=== PATIENT | female | born 1985 | race Caucasian/White ===

== ENCOUNTER 2016-06-02 08:28 | Day surgery (SDC) | payer MEDICARE, MEDICAID ==
[~2016-06-02 08:28] MED LIST: PROPOFOL INJ 200 MG/20 ML VIAL IV ONE
[2016-06-02 10:08] VITALS: BP 111/78
--- NOTE | 2016-06-02 10:18 | Operative Report ---
Operative Report DATE OF SURGERY: 06/02/16 Operative Report: The risks, benefits and alternatives of the procedure including risks of bleeding, perforation requiring surgery are explained to the patient in detail and informed consent is obtained. Patient is taken back to the endoscopy suite. She is placed in a left lateral decubital position. Timeout procedures called. The propofol medications administered. A rectal examination was done which did not reveal any masses, tears or fissures. An Olympus videoscope was inserted into the patient's rectum. Keeping the lumen in site at all times the scope gradually advanced all the way to the cecum. The cecum was identified by the usual anatomical landmarks including the ileocecal valve as well as the appendiceal office. Photodocumentation was obtained. Prep is good. The scope was then sequentially pulled back out via the rest segments of the colon including the ascending colon, hepatic flexure, transverse colon, splenic flexure, descending colon and finally into the rectosigmoid colon. Retroflexion maneuvers performed. PREOPERATIVE DIAGNOSIS: Diarrhea, change of bowel habits. POSTOPERATIVE DIAGNOSIS: Left sided colitis. Mild terminal ileitis status post biopsy. OPERATION: Colonoscopy with biopsy. SURGEON: JEANETTE HERRING ANESTHESIA: Moderate Sedation TISSUE REMOVED OR ALTERED: Terminal ileum specimens obtained, left colon Specimen obtained. COMPLICATIONS: None. ESTIMATED BLOOD LOSS: none. INTRAOPERATIVE FINDINGS: Patchy left-sided colitis status post biopsy. Mild terminal ileitis. No masses, AVMs diverticulosis noted. PROCEDURE: Patient tolerated the procedure well. No immediate postprocedure complications are noted. Patient is discharged in good condition. Date of discharge 06/02/2016. Discharge diet: Regular. Discharge activity: Regular. Patient is scheduled for 2-3 week follow-up to discuss findings. We'll await on biopsies. Patient is instructed to go to emergency room I will call the office should there be any further problems or questions.
== END 2016-06-02 10:05 | disposition home or self-care (01) ==
LOC: END 08:28
PROVIDERS: ATTEND Internal Medicine Gastroenterology
PROC: 0DBG8ZX Excision of Left Large Intestine, Via Natural or Artificial Opening Endoscopic, Diagnostic (ICD-10-PCS; 2016-06-02)
PROC: 0DBB8ZX Excision of Ileum, Via Natural or Artificial Opening Endoscopic, Diagnostic (ICD-10-PCS; principal; 2016-06-02 10:30)
DX: K52.9 Noninfective gastroenteritis and colitis, unspecified (principal); K62.89 Other specified diseases of anus and rectum; Z88.8 Allergy status to other drugs, medicaments and biological substances
CPT/HCPCS: 45380; 82962; 88305 ×2; J2704; 810

== ENCOUNTER → 2016-07-30 | Outpatient (CLI) | payer MEDICARE, MEDICAID | LOC: OD 11:21 | PROVIDERS: ATTEND Family Medicine | DX: M25.512 Pain in left shoulder (principal); S69.92XA Unspecified injury of left wrist, hand and finger(s), initial encounter; X58.XXXA Exposure to other specified factors, initial encounter; Y93.9 Activity, unspecified; Y92.9 Unspecified place or not applicable ==

== ENCOUNTER 2017-05-02 21:19 | Inpatient (IN) | payer MEDICARE, MEDICAID ==
[2017-05-02] MEDS ORDERED: NORMAL SALINE 1000 ML 1,000 ML IV ONE (22:31)
[2017-05-02] MEDS ORDERED: ONDANSETRON HCL INJ/PF 4 MG/2 ML SDV IV ONE (22:31)
[2017-05-02] MEDS ORDERED: ONDANSETRON HCL INJ/PF 4 MG/2 ML SDV ONE (22:33)
[2017-05-02 22:42] LABS: ABSOLUTE EOSINOPHILS # (AUTO) 0.1 10^3/uL (0.0-0.6); ABSOLUTE LYMPHOCYTES (AUTO) 2.8 10^3/uL (0.5-4.7); ABSOLUTE MONOCYTES (AUTO) 0.9 10^3/uL (0.1-1.4); ABSOLUTE NEUT (AUTO) 9.4 10^3/uL (1.7-8.2); BASOPHILS % (AUTO) 0.3 % (0-2); EOSINOPHILS % (AUTO) 0.6 % (0-6); HEMATOCRIT 41.5 % (36.0-47.0); HEMOGLOBIN 14.3 g/dL (12.0-15.5); HGB HCT DIFFERENCE 1.4; MEAN CORPUSCULAR HEMOGLOBIN 29.2 pg (27.0-33.4); MEAN CORPUSCULAR HGB CONC 34.4 g/dL (32.0-36.0); MEAN CORPUSCULAR VOLUME 85 fl (80-97); MONOCYTES % (AUTO) 6.7 % (3-13); RED BLOOD COUNT 4.89 10^6/uL (3.72-5.28); RED CELL DISTRIBUTION WIDTH 12.8 % (11.5-14.0); SEGMENTED NEUTROPHILS % (AUTO) 71.4 % (42-78); WHITE BLOOD COUNT 13.2 10^3/uL (4.0-10.5)
[2017-05-02 22:53] LABS: BILIRUBIN,URINE NEGATIVE (NEGATIVE); GLUCOSE, URINE NEGATIVE (NEGATIVE); KETONES,URINE TRACE mg/dL (NEGATIVE); LEUKOCYTE ESTERASE,URINE SMALL (NEGATIVE); NITRITE,URINE NEGATIVE (NEGATIVE); PROTEIN,URINE 30 mg/dL (NEGATIVE); URINE SPECIFIC GRAVITY 1.034
[2017-05-02 22:55] LABS: ALANINE AMINOTRANSFERASE 28 U/L (9-52); ALBUMIN 4.4 g/dL (3.5-5.0); ALKALINE PHOSPHATASE 69 U/L (38-126); ANION GAP 16 (5-19); ASPARTATE AMINO TRANSFERASE 46 U/L (14-36); BILIRUBIN,DIRECT 0.3 mg/dL (0.0-0.4); BILIRUBIN,TOTAL 1.1 mg/dL (0.2-1.3); BLOOD UREA NITROGEN 11 mg/dL (7-20); CALCIUM 9.6 mg/dL (8.4-10.2); CARBON DIOXIDE 21 mmol/L (22-30); CHLORIDE 103 mmol/L (98-107); CREATININE RESULT 0.66 mg/dL (0.52-1.25); GLUCOSE 116 mg/dL (75-110); LIPASE 57.1 U/L (23-300); POTASSIUM 4.1 mmol/L (3.6-5.0); SODIUM 140.1 mmol/L (137-145); TOTAL PROTEIN 7.3 g/dL (6.3-8.2)
[2017-05-02 22:59] LABS: APPEARANCE,URINE CLEAR
[2017-05-03] MEDS ORDERED: PROMETHAZINE HCL INJ 25 MG/1 ML VIAL IM ONE
[2017-05-03] MEDS ORDERED: MORPHINE SULFATE 10 MG/ML INJ IV ONE (00:01)
--- NOTE | 2017-05-03 00:03 | ER Document Report ---
ED General - General Chief Complaint: Vomiting Stated Complaint: VOMITING, ABDOMINAL PAIN Time Seen by Provider: 05/02/17 22:25 Notes: Patient is a 33-year-old female presents with complaint of left lower quadrant abdominal pain and vomiting. States symptoms of started last 2012-24 hours. No fevers. She had one episode of diarrhea. No blood in her stool. No blood or emesis. She does have a history of possible colitis. She has a history of IBS. She has had 3 colonoscopies. She said one colonoscopy showed some colitis but the repeats showed that there was not any. She has seen Dr. Terry in the past for this. She denies any history of surgeries on her abdomen. 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 She does take Lexapro. She is also on valacyclovir due to a history of genital herpes. TRAVEL OUTSIDE OF THE [place] IN LAST 30 DAYS: No - Related Data Allergies/Adverse Reactions: aripiprazole [From [email or web address][employer]me] Allergy (Verified 05/02/17 21:20) Hives Past Medical History - Social History Smoking Status: Unknown if Ever Smoked Frequency of alcohol use: None Drug Abuse: None Family History: Reviewed & Not Pertinent Patient has suicidal ideation: No Patient has homicidal ideation: No - Past Medical History Cardiac Medical History: Denies: Hx Coronary Artery Disease, Hx Heart Attack, Hx Hypertension Pulmonary Medical History: Reports: Hx Bronchitis, Hx Pneumonia Denies: Hx Asthma, Hx COPD Neurological Medical History: Reports: Hx Seizures. 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 Denies recent illness. EENT: Denies eye, ear, throat, or mouth pain or symptoms. Denies nasal or sinus congestion. CARDIOVASCULAR: Denies chest pain. RESPIRATORY: Denies cough, cold, or chest congestion. Denies shortness of breath, difficulty breathing, or wheezing. GASTROINTESTINAL: Left lower quadrant abdominal pain. Recurrent vomiting. GENITOURINARY: Denies difficulty urinating, painful urination, burning, frequency, or blood in urine. FEMALE GENITOURINARY: Denies vaginal bleeding, abnormal or irregular periods. MUSCULOSKELETAL: Denies neck or back pain or joint pain or swelling. SKIN: Denies rash or skin lesions. NEUROLOGICAL: Denies altered mental status or loss of consciousness. Denies headache. Denies weakness or paralysis or loss of use of either side. Denies problems with gait or speech. Denies sensory or motor loss. ALL OTHER SYSTEMS REVIEWED AND NEGATIVE. Physical Exam - Vital signs Vitals: Temp Pulse Resp BP Pulse Ox 98.7 F 104 H 18 118/87 H 98 05/02/17 21:31 05/02/17 21:31 05/02/17 21:31 05/02/17 21:31 05/02/17 21:31 - Notes Notes: General Appearance: Well nourished, alert, cooperative, no acute distress, moderate obvious discomfort. Vitals: reviewed, See vital signs table. Head: no swelling or tenderness to the head Eyes: PERRL, EOMI, Conjuctiva clear Mouth: No decreasd moisture Lungs: No wheezing, No rales, No rhonci, No accessory muscle use, good air exchange bilaterally. Heart: Normal rate, Regular rythm, No murmur, no rub Abdomen: Normal BS, soft, No rigidity, her left lower quadrant abdominal tenderness palpation, mild guarding, no rebound, no abdominal masses, no organomegaly Extremities: strength 5/5 in all extremities, good pulses in all extremities, no swelling or tenderness in the extremities, no edema. Skin: warm, dry, appropriate color, no rash Neuro: speech clear, oriented x 3, normal affect, responds appropriately to questions. Course - Re-evaluation Re-evalutation: 05/03/17 00:02 Patient has recurrence dry heaves. She says she still has a lot of left lower quadrant abdominal pain. Mother says she she does have a history of colitis. It is very difficult to determine if it is ulcerative colitis. Mother really does not know. Think she has a slight leukocytosis in the current pain and still vomiting still feels unwell we will obtain CT scan to evaluate her left lower quadrant better. 05/03/17 01:20 CT scan does show moderate grade small bowel obstruction with transition point left lower quadrant which is location of her pain. I went back and did speak with the patient and her mother at length asking them if she does have history of small bowel obstruction I said no but then when explained to them the placement of NG tube her mother says that she did have that placed approximately 4-5 years ago because she had vomiting and abdominal pain at that time. She is mother says she does not remember it being called obstruction but she had the same thing and had out of NG tube placed at that time. He still denies any history of abdominal surgeries. I did speak with Dr. Howard who agrees with NG tube placement and says he will admit the patient. 05/03/17 04:15 Dictation of this chart was performed using voice recognition software; therefore, there may be some unintended grammatical errors. - Vital Signs Vital signs: Temp Pulse Resp BP Pulse Ox 98.7 F 104 H 18 118/87 H 96 05/02/17 21:31 05/02/17 21:31 05/03/17 02:00 05/02/17 21:31 05/03/17 02:00 - Laboratory Result Diagrams: 05/02/17 22:25 05/02/17 22:25 Laboratory results interpreted by me: 05/02/17 05/02/17 05/02/17 22:25 22:25 22:25 WBC 13.2 H Absolute Neutrophils 9.4 H Carbon Dioxide 21 L Glucose 116 H AST 46 H Urine Protein 30 H Urine Ketones TRACE H Urine Urobilinogen 2.0 H Ur Leukocyte Esterase SMALL H Urine Ascorbic Acid 40 H Discharge - Discharge Clinical Impression: Small bowel obstruction Condition: Stable Disposition: ADMITTED OBSERVATION Admitting Provider: Surgicalist Unit Admitted: Surgical Floor
--- NOTE | 2017-05-03 00:46 | RADIOLOGY REPORT (SQ) ---
EXAM DESCRIPTION: CT ABD/PELVIS NO ORAL OR IV CLINICAL HISTORY: 32 years Female, LLQ pain and vomiting COMPARISON: None. TECHNIQUE: This exam was performed according to our departmental dose-optimization program, which includes automated exposure control, adjustment of the mA and/or kV according to patient size and/or use of iterative reconstruction technique. FINDINGS: Moderate fluid distention and air-fluid levels of small bowel in the left paracentral abdomen including in diameter of 4.1 cm. Zone of transition appears in the left paracentral pelvis with moderate fecalization of distal jejunal stool. Small free pelvic fluid. Small colonic diverticulosis. Inferior chest, unenhanced pszii-[id number] structures, IMPRESSION: Moderate grade small bowel obstruction with transition zone in the left paracentral pelvis. Surgical consultation warranted.
[2017-05-03] MEDS ORDERED: MIDAZOLAM 2 MG/2 ML INJ IV ONE (01:16)
[2017-05-03] MEDS ORDERED: PHARMACY COMMUNICATION ORDER MC NR (01:30)
--- NOTE | 2017-05-03 04:47 | RADIOLOGY REPORT (SQ) ---
EXAM DESCRIPTION: KUB/ABDOMEN (SINGLE VIEW) CLINICAL HISTORY: 32 years, Female, Check Placement of NG Tube COMPARISON: None. NUMBER OF VIEWS: One targeted for tube placement. FINDINGS: Adequate appearing distal enteric tube with proximal port and tip over the left upper abdominal quadrant. Moderate dilation of the jejunal bowel loop of the left upper quadrant, 3.6 cm in diameter. IMPRESSION: Enteric tube. 2010 [employer]- All Rights Reserved
[2017-05-03] MEDS ORDERED: NORMAL SALINE 1000 ML 1,000 ML IV PRN (05:49)
[2017-05-03] MEDS ORDERED: DEXTROSE 50%-WATER 25 GM/50 ML DISP.SYRIN IV PRN ×2 (08:03)
[2017-05-03] MEDS ORDERED: DEXTROSE 40% GEL 15 GM TUBE PO PRN ×2 (08:03)
[2017-05-03] MEDS ORDERED: GLUCAGON,HUMAN RECOMB 1 MG INJ SUBCUT PRN (08:03)
[2017-05-03 09:48] LABS: ABSOLUTE EOSINOPHILS # (AUTO) 0.1 10^3/uL (0.0-0.6); ABSOLUTE LYMPHOCYTES (AUTO) 2.5 10^3/uL (0.5-4.7); ABSOLUTE MONOCYTES (AUTO) 0.8 10^3/uL (0.1-1.4); ABSOLUTE NEUT (AUTO) 7.5 10^3/uL (1.7-8.2); BASOPHILS % (AUTO) 0.4 % (0-2); EOSINOPHILS % (AUTO) 1.1 % (0-6); HEMATOCRIT 40.3 % (36.0-47.0); HEMOGLOBIN 13.7 g/dL (12.0-15.5); HGB HCT DIFFERENCE 0.8; LYMPHOCYTES % (AUTO) 22.9 % (13-45); MEAN CORPUSCULAR HEMOGLOBIN 28.9 pg (27.0-33.4); MEAN CORPUSCULAR VOLUME 85 fl (80-97); MONOCYTES % (AUTO) 7.5 % (3-13); RED BLOOD COUNT 4.74 10^6/uL (3.72-5.28); RED CELL DISTRIBUTION WIDTH 12.9 % (11.5-14.0); SEGMENTED NEUTROPHILS % (AUTO) 68.1 % (42-78)
[2017-05-03 10:03] LABS: ANION GAP 12 (5-19); BLOOD UREA NITROGEN 9 mg/dL (7-20); CALCIUM 9.4 mg/dL (8.4-10.2); CARBON DIOXIDE 25 mmol/L (22-30); CHLORIDE 104 mmol/L (98-107); GLUCOSE 105 mg/dL (75-110); POTASSIUM 4.4 mmol/L (3.6-5.0)
[2017-05-03] MEDS: MORPHINE SULFATE 10 MG/ML INJ IV PRN ×2 (13:24→21:46)
[2017-05-03 20:57] LABS: AMORPHOUS SEDIMENT,URINE TRACE /HPF; APPEARANCE,URINE SLIGHTLY-CLOUDY; BILIRUBIN,URINE NEGATIVE (NEGATIVE); GLUCOSE, URINE NEGATIVE (NEGATIVE); KETONES,URINE 20 mg/dL (NEGATIVE); LEUKOCYTE ESTERASE,URINE SMALL (NEGATIVE); NITRITE,URINE NEGATIVE (NEGATIVE); PROTEIN,URINE NEGATIVE (NEGATIVE); URINE SPECIFIC GRAVITY 1.021
--- NOTE | 2017-05-03 21:46 | PDOC H&P ---
History of Present Illness Admission Date/PCP: 05/03/17 21:09 LOCO RECINOS DO Patient complains of: abdominal pains with n/V History of Present Illness: SAAD OATES is a 32 year old female C/O LLQ abdominal painspast 24 hrs prior to being seen in the ED associated N/V. CT scan abdomen in ED showed SBO Pt had no previous abdominal surgery but had been having off and on abdominal juaquin. Had multiple colonoscopies in the past 2 years and mother claims no definite colitis. An NGT was inserted in the ED with a little relief. Past Medical History Cardiac Medical History: Denies: Coronary Artery Disease, Myocardial Infarction, Hypertension Pulmonary Medical History: Reports: Bronchitis, Pneumonia Denies: Asthma, Chronic Obstructive Pulmonary Disease (COPD) Neurological Medical History: Reports: Seizures Endocrine Medical History: Reports: 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 Musculoskeltal Medical History: Denies: Arthritis Psychiatric Medical History: Reports: Depression Traumatic Medical History: Reports: Traumatic Brain Injury Hematology: Denies: Anemia Social History Smoking Status: Unknown if Ever Smoked Drugs: None - Advance Directive Resuscitation Status: Full Code Family History Family History: Reviewed & Not Pertinent Parental Family History Reviewed: Yes - DM Children Family History Reviewed: No Sibling(s) Family History Reviewed.: No Medication/Allergy Home Medications: Dicyclomine HCl 10 mg PO Q8HP PRN 05/03/17 Escitalopram Oxalate [Lexapro 10 mg Tablet] 10 mg PO DAILY 05/03/17 Ibuprofen [Motrin 800 mg Tablet] 800 mg PO Q8HP PRN 05/03/17 Metformin HCl 250 mg PO DAILY 05/03/17 Norgestimate-Ethinyl Estradiol [Trinessa Lo Tablet] 1 tab PO DAILY 05/03/17 Valacyclovir HCl [Valacyclovir] 500 mg PO Q12 05/03/17 Allergies/Adverse Reactions: aripiprazole [From [employer]il[employer]] Allergy (Verified 05/02/17 21:20) Hives Review of Systems Constitutional: PRESENT: other - no fever or chills Eyes: PRESENT: other - no visual or hearing problems Nose, Mouth, and Throat: PRESENT: other - no sore throat Cardiovascular: PRESENT: other - no chest pains Respiratory: PRESENT: other - no cough Gastrointestinal: PRESENT: abdominal pain, nausea, vomiting Musculoskeletal: PRESENT: other - no joint swelling Integumentary: PRESENT: other - no rash Neurological: PRESENT: other - History of seizures Psychiatric: PRESENT: other - no depression Endocrine: PRESENT: other - no polyuria,no polydipsia Physical Exam Vital Signs: Temp Pulse Resp BP Pulse Ox 97.9 F 74 16 107/72 95 05/03/17 17:02 05/03/17 17:02 05/03/17 17:02 05/03/17 17:02 05/03/17 17:02 General appearance: PRESENT: no acute distress Head exam: PRESENT: atraumatic, normocephalic Eye exam: PRESENT: conjunctiva pink Mouth exam: PRESENT: moist, tongue midline Neck exam: PRESENT: full ROM Respiratory exam: PRESENT: clear to auscultation dain Cardiovascular exam: PRESENT: RRR Pulses: PRESENT: normal radial pulses Vascular exam: PRESENT: normal capillary refill GI/Abdominal exam: PRESENT: soft, tenderness - LLQ Rectal exam: PRESENT: deferred Extremities exam: PRESENT: full ROM Musculoskeletal exam: PRESENT: full ROM Neurological exam: PRESENT: alert, oriented to person, oriented to place, oriented to time, oriented to situation Psychiatric exam: PRESENT: unusual affect Skin exam: PRESENT: normal color, warm Results Impressions: Abdomen/Pelvis CT 05/03/17 00:01 IMPRESSION: Moderate grade small bowel obstruction with transition zone in the left paracentral pelvis. Surgical consultation warranted. KUB X-Ray 05/03/17 01:16 IMPRESSION: Enteric tube. 2010 [employer]- All Rights Reserved Assessment & Plan - Time Time Spent: 30 to 50 Minutes - Inpatient Certification Medical Necessity: Need For IV Fluids, Need for Pain Control, Risk of Diagnosis Which Will Require Inpatient Eval/Care/Monitoring - Plan Summary Plan Summary: NGT Pain mx Hydration May need gastrograffin SBFT if not opened up tomorrow Check CBC and BMP
[2017-05-04] MEDS: ONDANSETRON HCL INJ/PF 4 MG/2 ML SDV IV PRN ×2 (08:40→21:42)
[2017-05-04 10:34] LABS: ABSOLUTE EOSINOPHILS # (AUTO) 0.3 10^3/uL (0.0-0.6); ABSOLUTE LYMPHOCYTES (AUTO) 2.1 10^3/uL (0.5-4.7); ABSOLUTE MONOCYTES (AUTO) 0.6 10^3/uL (0.1-1.4); ABSOLUTE NEUT (AUTO) 7.3 10^3/uL (1.7-8.2); BASOPHILS % (AUTO) 0.4 % (0-2); EOSINOPHILS % (AUTO) 2.7 % (0-6); HEMOGLOBIN 12.9 g/dL (12.0-15.5); HGB HCT DIFFERENCE 0.7; LYMPHOCYTES % (AUTO) 20.3 % (13-45); MEAN CORPUSCULAR HEMOGLOBIN 29.1 pg (27.0-33.4); MEAN CORPUSCULAR VOLUME 86 fl (80-97); MONOCYTES % (AUTO) 6.3 % (3-13); RED BLOOD COUNT 4.44 10^6/uL (3.72-5.28); RED CELL DISTRIBUTION WIDTH 12.9 % (11.5-14.0); SEGMENTED NEUTROPHILS % (AUTO) 70.3 % (42-78); WHITE BLOOD COUNT 10.3 10^3/uL (4.0-10.5)
[2017-05-04 10:57] LABS: ANION GAP 15 (5-19); BLOOD UREA NITROGEN 8 mg/dL (7-20); CALCIUM 8.9 mg/dL (8.4-10.2); CARBON DIOXIDE 19 mmol/L (22-30); CHLORIDE 111 mmol/L (98-107); CREATININE RESULT 0.59 mg/dL (0.52-1.25); GLUCOSE 79 mg/dL (75-110); POTASSIUM 3.9 mmol/L (3.6-5.0); SODIUM 144.9 mmol/L (137-145)
[2017-05-04] MEDS: MORPHINE SULFATE 10 MG/ML INJ IV PRN ×3 (11:20→21:42)
--- NOTE | 2017-05-04 11:40 | RADIOLOGY REPORT (SQ) ---
EXAM DESCRIPTION: SMALL BOWEL SERIES COMPLETED DATE/TIME: 05/04/2017 10:11 am REASON FOR STUDY: GASTROGRAFFIN WITH SBO FOLLOW THROUGH R19.15 OTHER ABNORMAL BOWEL SOUNDS R73.03 PREDIABETES COMPARISON: KUB 05/03/2017 CT abdomen pelvis 05/03/2017 Hepatobiliary scan 03/19/2016 Abdominal ultrasound 02/22/2016 FLUOROSCOPY TIME: 1.2 minutes 19 digital images saved to PACS. LIMITATIONS: None. PROCEDURE: Initial technology integration specialist image of abdomen acquired, followed by administration of 240 mL Gastrografi n instilled through the patient's nasogastric tube. Fluoroscopic spot images and KUB images were obt ained, until contrast reached the ascending colon. All images stored on PACS. FINDINGS: Identity Management Developer film demonstrates a nasogastric tube with the tip and side port in the stomach fundu s. A dilated loop of small bowel in the left upper quadrant is seen just to the left of the spine. Otherwise unremarkable bowel gas pattern. Subsequent images demonstrate mild dilatation of left upper quadrant proximal jejunal loops, with mil d mucosal fold thickening and a stack of coins appearance. There is a transition point identified under fluoroscopy between the mildly dilated left upper quadra nt small bowel loops with thickened folds, and more normal appearing mid and distal small bowel. Thi s is at about the level of the L4-5 disc space just to the left of midline, and correlates with a tra nsition point seen on CT exam 05/03/2017. Overall, the degree of distention of the proximal left upp er quadrant small bowel loops on today's study is decreased compared to CT 05/03/2017. Mid and distal small bowel, ascending colon unremarkable. Findings discussed with Dr. Dela Cruz IMPRESSION: Mildly distended left upper quadrant small bowel loops with thickened folds. Transition point to decompressed mid and distal small bowel in the left lower quadrant. Today's study indicate s a low-grade partial obstruction, contrast bypasses the transition point and is seen in ascending co lata and distal small bowel by 45 minutes. COMMENT: Quality ID [id number]: Final reports for procedures using fluoroscopy that document radiation exp osure indices, or exposure time and number of fluorographic images (if radiation exposure indices are not available) TECHNICAL DOCUMENTATION: JOB ID: [id number] [employer]- All Rights Reserved
[2017-05-04] MEDS: DEXTROSE 5%-LACTATED RINGERS 1,000 ML with POTASSIUM CHLORIDE 40 MEQ IV PRN ×4 (14:45→19:34)
--- NOTE | 2017-05-04 16:45 | PDOC PROGRESS REPORT ---
Subjective Progress Note for:: 05/04/17 Reason For Visit: SMALL BOWEL OBSTRUCTION Patient having intermittent abdominal pain, worse when she has massive episodes of diarrhea. Past history significant for for colonoscopies over the past year, performed by multiple providers including Dr. Israel, and Dr. Soto of [facility]. Patient has carried a variety of gastrointestinal diagnoses including irritable bowel syndrome and colitis. Because of the patient's limited cognitive capabilities, the patient's mother provides most of the history. The patient underwent upper GI with small bowel follow-through today with Gastrografin showed no evidence of javier obstruction, however a proximal small bowel loop on the left side of her lateral abdomen is somewhat dilated with a thickened wall. Suggestion of partial obstruction considered. Physical Exam Vital Signs: Temp Pulse Resp BP Pulse Ox 98.2 F 92 17 126/71 H 98 05/04/17 11:00 05/04/17 11:00 05/04/17 11:00 05/04/17 11:00 05/04/17 11:00 Intake & Output 05/03/17 05/04/17 05/05/17 06:59 06:59 06:59 Intake Total 0 Output Total 250 Balance -250 General appearance: PRESENT: mild distress GI/Abdominal exam: PRESENT: other - No peritoneal signs no rigidity Results Laboratory Results: 05/04/17 10:17 05/04/17 10:17 05/04/17 05/04/17 10:17 10:17 WBC 10.3 RBC 4.44 Hgb 12.9 Hct 38.0 MCV 86 MCH 29.1 MCHC 34.0 RDW 12.9 Plt Count 278 Seg Neutrophils % 70.3 Lymphocytes % 20.3 Monocytes % 6.3 Eosinophils % 2.7 Basophils % 0.4 Absolute Neutrophils 7.3 Absolute Lymphocytes 2.1 Absolute Monocytes 0.6 Absolute Eosinophils 0.3 Absolute Basophils 0.0 Sodium 144.9 Potassium 3.9 Chloride 111 H Carbon Dioxide 19 L Anion Gap 15 BUN 8 Creatinine 0.59 Est GFR ( Amer) > 60 Est GFR (Non-Af Amer) > 60 Glucose 79 Calcium 8.9 Impressions: Abdomen/Pelvis CT 05/03/17 00:01 IMPRESSION: Moderate grade small bowel obstruction with transition zone in the left paracentral pelvis. Surgical consultation warranted. KUB X-Ray 05/03/17 01:16 IMPRESSION: Enteric tube. 2011 [employer]- All Rights Reserved Small Bowel X-Ray 05/04/17 00:00 IMPRESSION: Mildly distended left upper quadrant small bowel loops with thickened folds. Transition point to decompressed mid and distal small bowel in the left lower quadrant. Today's study indicates a low-grade partial obstruction, contrast bypasses the transition point and is seen in ascending colon and distal small bowel by 45 minutes. Assessment & Plan - Diagnosis (1) Small bowel obstruction Is this a current diagnosis for this admission?: Yes Plan: Clinically and radiographically the bowel obstruction appears partial; the patient may have an abnormal jejunum loop but that is difficult to ascertain. Recommendations: 1. Continue nasogastric decompression 2. Continue fluid and electrolyte replacement
[2017-05-04] MEDS ORDERED: RINGERS SOLUTION,LACTATED 1,000 ML IV PRN (17:30)
[2017-05-04 19:51] LABS: ANION GAP 10 (5-19); BLOOD UREA NITROGEN 5 mg/dL (7-20); CALCIUM 8.6 mg/dL (8.4-10.2); CARBON DIOXIDE 22 mmol/L (22-30); CHLORIDE 110 mmol/L (98-107); CREATININE RESULT 0.59 mg/dL (0.52-1.25); GLUCOSE 83 mg/dL (75-110); POTASSIUM 4.1 mmol/L (3.6-5.0); SODIUM 141.7 mmol/L (137-145)
[2017-05-04] MEDS ORDERED: FAMOTIDINE INJ/PF 20 MG/2 ML SDV IV ONE (20:00)
[2017-05-04] MEDS ORDERED: FAMOTIDINE 20 MG TABLET PO ONE (20:00)
[2017-05-05] MEDS: ONDANSETRON HCL INJ/PF 4 MG/2 ML SDV IV PRN (05:22)
[2017-05-05] MEDS: MORPHINE SULFATE 10 MG/ML INJ IV PRN ×3 (05:22→21:13)
[2017-05-05 07:09] LABS: ANION GAP 10 (5-19); BLOOD UREA NITROGEN 3 mg/dL (7-20); CALCIUM 8.9 mg/dL (8.4-10.2); CARBON DIOXIDE 22 mmol/L (22-30); CHLORIDE 110 mmol/L (98-107); CREATININE RESULT 0.57 mg/dL (0.52-1.25); GLUCOSE 128 mg/dL (75-110); POTASSIUM 4.5 mmol/L (3.6-5.0); SODIUM 141.9 mmol/L (137-145)
[2017-05-05] MEDS: FAMOTIDINE INJ/PF 20 MG/2 ML SDV IV SCH ×2 (09:20→18:06)
--- NOTE | 2017-05-05 09:32 | PDOC CONSULTATION ---
Consultation Consult Date: 05/05/17 Attending physician:: JEANETTE HERRING Consult reason:: possible partial small bowel obstruction History of Present Illness Admission Date/PCP: 05/03/17 21:09 LOCO RECINOS DO History of Present Illness: I am asked to see this patient by the hospitalist talent acquisition manager today patient has been admitted by the surgical service patient had been seen earlier this year had colonoscopy that was negative patient has seen several GI physicians in this town with multiple scopes in the recent year noted to have seen Dr Delgadillo in [facility], and reported to have [facility] as well admitting CT scan notes a partial small bowel obstruction with contrast able to pass beyond the area her labs are normal without a leukocytosis patient may have an intermittent intussuception noted otherwise would have low probability for Crohn's disease can draw anti sachromyces antibody patient does not appear to be in distress may need ex lap but will let surgeon decide Past Medical History Cardiac Medical History: Denies: Coronary Artery Disease, Myocardial Infarction, Hypertension Pulmonary Medical History: Reports: Bronchitis, Pneumonia Denies: Asthma, Chronic Obstructive Pulmonary Disease (COPD) Neurological Medical History: Reports: Seizures Endocrine Medical History: Reports: 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 Musculoskeltal Medical History: Denies: Arthritis Psychiatric Medical History: Reports: Depression Traumatic Medical History: Reports: Traumatic Brain Injury Hematology: Denies: Anemia Social History Smoking Status: Unknown if Ever Smoked Drugs: None - Advance Directive Resuscitation Status: Full Code Family History Family History: Reviewed & Not Pertinent Parental Family History Reviewed: Yes Children Family History Reviewed: Unknown Sibling(s) Family History Reviewed.: Unknown Medication/Allergy Home Medications: Dicyclomine HCl 10 mg PO Q8HP PRN 05/03/17 Escitalopram Oxalate [Lexapro 10 mg Tablet] 10 mg PO DAILY 05/03/17 Ibuprofen [Motrin 800 mg Tablet] 800 mg PO Q8HP PRN 05/03/17 Metformin HCl 250 mg PO DAILY 05/03/17 Norgestimate-Ethinyl Estradiol [Trinessa Lo Tablet] 1 tab PO DAILY 05/03/17 Valacyclovir HCl [Valacyclovir] 500 mg PO Q12 05/03/17 Allergies/Adverse Reactions: aripiprazole [From Abilify] Allergy (Verified 05/02/17 21:20) Hives Review of Systems Constitutional: ABSENT: fever(s), headache(s), night sweats, weakness Eyes: ABSENT: visual disturbances Ears: ABSENT: hearing changes Nose, Mouth, and Throat: ABSENT: mouth pain, sore throat Cardiovascular: ABSENT: edema, orthropnea Respiratory: ABSENT: dyspnea, hemoptysis Gastrointestinal: PRESENT: abdominal pain. ABSENT: coffee ground emesis, diarrhea, hematemesis Genitourinary: ABSENT: dysuria, hematuria Musculoskeletal: ABSENT: deformity, joint swelling Integumentary: ABSENT: lesions, pruritus Neurological: ABSENT: syncope, tingling, tremor(s), vertigo Endocrine: ABSENT: polydipsia, polyphagia, polyuria Hematologic/Lymphatic: ABSENT: easy bruising Physical Exam Vital Signs: Temp Pulse Resp BP Pulse Ox 98.4 F 75 14 109/70 93 05/05/17 07:04 05/05/17 07:04 05/05/17 07:04 05/05/17 07:04 05/05/17 07:04 Intake & Output 05/04/17 05/05/17 05/06/17 06:59 06:59 06:59 Intake Total 0 480 Output Total 250 2090 Balance -250 -1610 General appearance: PRESENT: no acute distress, well-developed, well-nourished Head exam: PRESENT: atraumatic, normocephalic Eye exam: PRESENT: EOMI, PERRLA. ABSENT: conjunctival injection, nystagmus, periorbital swelling, scleral icterus Mouth exam: PRESENT: moist, neck supple Throat exam: ABSENT: tonsillar exudate, tonsillogmegaly Neck exam: ABSENT: meningismus, tenderness, thyromegaly Respiratory exam: PRESENT: symmetrical, unlabored. ABSENT: tachypnea, wheezes Cardiovascular exam: PRESENT: RRR, +S1, +S2 GI/Abdominal exam: PRESENT: soft. ABSENT: rebound, rigid, tenderness Neurological exam: PRESENT: oriented to time, oriented to situation, CN II-XII grossly intact Skin exam: PRESENT: normal color. ABSENT: mottled, pallor, petechiae, urticaria , vesicles Results Laboratory Results: 05/04/17 10:17 05/05/17 06:16 05/04/17 05/04/17 05/04/17 10:17 10:17 18:55 WBC 10.3 RBC 4.44 Hgb 12.9 Hct 38.0 MCV 86 MCH 29.1 MCHC 34.0 RDW 12.9 Plt Count 278 Seg Neutrophils % 70.3 Lymphocytes % 20.3 Monocytes % 6.3 Eosinophils % 2.7 Basophils % 0.4 Absolute Neutrophils 7.3 Absolute Lymphocytes 2.1 Absolute Monocytes 0.6 Absolute Eosinophils 0.3 Absolute Basophils 0.0 Sodium 144.9 141.7 Potassium 3.9 4.1 Chloride 111 H 110 H Carbon Dioxide 19 L 22 Anion Gap 15 10 BUN 8 5 L Creatinine 0.59 0.59 Est GFR ( Amer) > 60 > 60 Est GFR (Non-Af Amer) > 60 > 60 Glucose 79 83 Calcium 8.9 8.6 05/05/17 06:16 WBC RBC Hgb Hct MCV MCH MCHC RDW Plt Count Seg Neutrophils % Lymphocytes % Monocytes % Eosinophils % Basophils % Absolute Neutrophils Absolute Lymphocytes Absolute Monocytes Absolute Eosinophils Absolute Basophils Sodium 141.9 Potassium 4.5 Chloride 110 H Carbon Dioxide 22 Anion Gap 10 BUN 3 L Creatinine 0.57 Est GFR ( Amer) > 60 Est GFR (Non-Af Amer) > 60 Glucose 128 H Calcium 8.9 Impressions: Abdomen/Pelvis CT 05/03/17 00:01 IMPRESSION: Moderate grade small bowel obstruction with transition zone in the left paracentral pelvis. Surgical consultation warranted. KUB X-Ray 05/03/17 01:16 IMPRESSION: Enteric tube. [facility] [employer] [facility] [employer]- All Rights Reserved Small Bowel X-Ray 05/04/17 00:00 IMPRESSION: Mildly distended left upper quadrant small bowel loops with thickened folds. Transition point to decompressed mid and distal small bowel in the left lower quadrant. Today's study indicates a low-grade partial obstruction, contrast bypasses the transition point and is seen in ascending colon and distal small bowel by 45 minutes. Assessment & Plan - Diagnosis (1) Small bowel obstruction Is this a current diagnosis for this admission?: Yes Plan: seems to be a chronic intermittent problem differential to include possible intussuception, possible Crohn's disease, partial external compression. multiple colonoscopies in the past have been normal lab work is all normal without any leukocytosis may need ex lap, will let surgicalist decide at this point she can follow up with her last GI physician that she has seen, I suspect at [facility] as she has not been back to our practice following her last procedure earlier in the year continue to monitor - Time Time Spent: 50 to 70 Minutes
[2017-05-05] MEDS ORDERED: FAMOTIDINE 20 MG TABLET PO SCH (10:00)
[2017-05-05] MEDS: DEXTROSE 5%-LACTATED RINGERS 1,000 ML with POTASSIUM CHLORIDE 40 MEQ IV PRN ×2 (12:42)
--- NOTE | 2017-05-05 13:24 | PDOC PROGRESS REPORT ---
Subjective Progress Note for:: 05/05/17 Subjective:: Less abdominal pains.+ Flatus Reason For Visit: SMALL BOWEL OBSTRUCTION Physical Exam Vital Signs: Temp Pulse Resp BP Pulse Ox 98.9 F 88 20 112/79 97 05/05/17 11:33 05/05/17 11:33 05/05/17 11:33 05/05/17 11:33 05/05/17 11:33 Intake & Output 05/04/17 05/05/17 05/06/17 06:59 06:59 06:59 Intake Total 0 480 Output Total 250 2090 Balance -250 -1610 Exam: NGT drainage decreasing.Had Gastrogaffin abd xrays yesterday which showed partial SBO. gasrograffin to large bowel in 45 min. Results Laboratory Results: 05/04/17 10:17 05/05/17 06:16 05/04/17 05/05/17 18:55 06:16 Sodium 141.7 141.9 Potassium 4.1 4.5 Chloride 110 H 110 H Carbon Dioxide 22 22 Anion Gap 10 10 BUN 5 L 3 L Creatinine 0.59 0.57 Est GFR ( Amer) > 60 > 60 Est GFR (Non-Af Amer) > 60 > 60 Glucose 83 128 H Calcium 8.6 8.9 Impressions: Abdomen/Pelvis CT 05/03/17 00:01 IMPRESSION: Moderate grade small bowel obstruction with transition zone in the left paracentral pelvis. Surgical consultation warranted. KUB X-Ray 05/03/17 01:16 IMPRESSION: Enteric tube. 2010 [employer] [facility] [employer]- All Rights Reserved Small Bowel X-Ray 05/04/17 00:00 IMPRESSION: Mildly distended left upper quadrant small bowel loops with thickened folds. Transition point to decompressed mid and distal small bowel in the left lower quadrant. Today's study indicates a low-grade partial obstruction, contrast bypasses the transition point and is seen in ascending colon and distal small bowel by 45 minutes. Assessment & Plan - Time Time Spent with patient: 15-24 minutes - Plan Summary Plan Summary: D/C NGT and start clears. Dr Todd who has seen her in the past was consulted
[2017-05-05] MEDS ORDERED: ESCITALOPRAM OXALATE 10 MG TABLET PO ONE ×2 (17:00→21:00)
[2017-05-05] MEDS: VALACYCLOVIR HCL 500 MG TABLET PO SCH (18:07)
[2017-05-06] MEDS: VALACYCLOVIR HCL 500 MG TABLET PO SCH ×2 (05:41→18:22)
--- NOTE | 2017-05-06 09:13 | PDOC PROGRESS REPORT ---
Subjective Progress Note for:: 05/06/17 Subjective:: tolerated po water well but not the gel because it causes LLQ pains. Reason For Visit: SMALL BOWEL OBSTRUCTION Physical Exam Vital Signs: Temp Pulse Resp BP Pulse Ox 97.7 F 62 16 103/68 96 05/06/17 07:00 05/06/17 07:00 05/06/17 07:00 05/06/17 07:00 05/06/17 07:00 Intake & Output 05/05/17 05/06/17 05/07/17 06:59 06:59 06:59 Intake Total 480 1555 Output Total 2090 1200 Balance -1610 355 Weight 71.6 kg Exam: abdomen is soft with mild tenderness LLQ Results Laboratory Results: 05/04/17 10:17 05/05/17 06:16 Impressions: Abdomen/Pelvis CT 05/03/17 00:01 IMPRESSION: Moderate grade small bowel obstruction with transition zone in the left paracentral pelvis. Surgical consultation warranted. KUB X-Ray 05/03/17 01:16 IMPRESSION: Enteric tube. [facility] [employer]- All Rights Reserved Small Bowel X-Ray 05/04/17 00:00 IMPRESSION: Mildly distended left upper quadrant small bowel loops with thickened folds. Transition point to decompressed mid and distal small bowel in the left lower quadrant. Today's study indicates a low-grade partial obstruction, contrast bypasses the transition point and is seen in ascending colon and distal small bowel by 45 minutes. Assessment & Plan - Time Time Spent with patient: 15-24 minutes - Inpatient Certification Medical Necessity: Need For IV Fluids, Risk of Complication if Not Cared For in Hospital - Plan Summary Plan Summary: Seen by Dr Todd yesterday. Feels may have recurrent intususception. Abd is soft, not distended. Had diarrhea this morning and therefore not obviously obstructed. Will continue on clears for now and advance as tolerated. OOB ambulate
[2017-05-06] MEDS ORDERED: NORGESTIMATE ETHINYL ESTRADIOL PO SCH (10:00)
[2017-05-06] MEDS ORDERED: ESCITALOPRAM OXALATE 10 MG TABLET PO SCH ×2 (10:00→21:00)
[2017-05-06] MEDS: FAMOTIDINE INJ/PF 20 MG/2 ML SDV IV SCH ×2 (10:20→18:22)
[2017-05-06] MEDS: ESCITALOPRAM OXALATE 10 MG TABLET PO SCH (21:20)
[2017-05-06] MEDS: MORPHINE SULFATE 10 MG/ML INJ IV PRN (23:34)
[2017-05-07] MEDS: VALACYCLOVIR HCL 500 MG TABLET PO SCH ×2 (05:26→17:44)
[2017-05-07] MEDS: FAMOTIDINE INJ/PF 20 MG/2 ML SDV IV SCH ×2 (10:20→17:44)
[2017-05-07] MEDS ORDERED: DEXTROSE 50%-WATER 25 GM/50 ML DISP.SYRIN IV PRN ×2 (10:44)
[2017-05-07] MEDS ORDERED: DEXTROSE 40% GEL 15 GM TUBE PO PRN ×2 (10:44)
[2017-05-07] MEDS ORDERED: GLUCAGON,HUMAN RECOMB 1 MG INJ SUBCUT PRN (10:44)
[2017-05-07] MEDS ORDERED: DEXTROSE 5%-1/2 NORMAL SALINE 1,000 ML with POTASSIUM CHLORIDE 20 MEQ IV PRN ×2 (10:45)
--- NOTE | 2017-05-07 11:23 | RADIOLOGY REPORT (SQ) ---
EXAM DESCRIPTION: ABDOMEN 2 VIEWS COMPLETED DATE/TIME: 05/07/2017 11:16 am REASON FOR STUDY: Follow-up small bowel obstruction R19.15 OTHER ABNORMAL BOWEL SOUNDS R73.03 PRED IABETES COMPARISON: None. NUMBER OF VIEWS: Two views. TECHNIQUE: Supine and erect/decubitus radiographic images of the abdomen acquired. LIMITATIONS: None. FINDINGS: FREE AIR: None. No abnormal gas collections. LUNG BASES: Clear. BOWEL GAS PATTERN: Nonobstructive pattern. No dilated loops or air fluid levels. CALCIFICATIONS: No suspicious calcifications. SOFT TISSUES: No gross mass or suggestion of organomegaly. HARDWARE: None in the abdomen. BONES: No acute fracture. No worrisome bone lesions. OTHER: No other significant finding. IMPRESSION: NO RADIOGRAPHIC EVIDENCE FOR ACUTE ABDOMINAL DISEASE. TECHNICAL DOCUMENTATION: JOB ID: [id number] [employer]- All Rights Reserved
[2017-05-07] MEDS: POTASSI CL 20 MEQ/D5-1/2NS 1L 1000 ML IV PRN (13:07)
--- NOTE | 2017-05-07 16:09 | PDOC PROGRESS REPORT ---
Subjective Progress Note for:: 05/07/17 Subjective:: Does not have nausea or vomiting however she complains of left mid abdominal pain. She has been passing some gas but not having any bowel movements today. Patient notes several year history of various gastrointestinal complaints with no clear etiology. Reason For Visit: SMALL BOWEL OBSTRUCTION Physical Exam Vital Signs: Temp Pulse Resp BP Pulse Ox 98.2 F 76 16 108/80 98 05/07/17 12:32 05/07/17 12:32 05/07/17 12:32 05/07/17 12:32 05/07/17 12:32 Intake & Output 05/06/17 05/07/17 05/08/17 06:59 06:59 06:59 Intake Total 1555 2030 Output Total 1200 Balance 355 2030 Weight 71.6 kg General appearance: PRESENT: no acute distress, cooperative Respiratory exam: PRESENT: clear to auscultation dain Cardiovascular exam: PRESENT: RRR GI/Abdominal exam: PRESENT: other - Soft, nondistended, mild left mid abdominal tenderness without peritoneal signs. Results Laboratory Results: 05/04/17 10:17 05/05/17 06:16 Impressions: Abdomen/Pelvis CT 05/03/17 00:01 IMPRESSION: Moderate grade small bowel obstruction with transition zone in the left paracentral pelvis. Surgical consultation warranted. KUB X-Ray 05/03/17 01:16 IMPRESSION: Enteric tube. [email or web address] [facility] [employer]- All Rights Reserved Small Bowel X-Ray 05/04/17 00:00 IMPRESSION: Mildly distended left upper quadrant small bowel loops with thickened folds. Transition point to decompressed mid and distal small bowel in the left lower quadrant. Today's study indicates a low-grade partial obstruction, contrast bypasses the transition point and is seen in ascending colon and distal small bowel by 45 minutes. Abdomen X-Ray 05/07/17 00:00 IMPRESSION: NO RADIOGRAPHIC EVIDENCE FOR ACUTE ABDOMINAL DISEASE. Assessment & Plan - Diagnosis (1) Small bowel obstruction Is this a current diagnosis for this admission?: Yes Plan: Her partial small bowel obstruction appears to have resolved as evidenced by no nausea or vomiting, and her normal KUB today. However patient still has persistent left mid abdominal tenderness and pain and this does appear to be the site of transition point that was seen on her Gastrografin small bowel follow series. I have discussed her with radiology. Putting her heads together a barium small bowel follow series may give us better definition of what may be going on in her left mid abdomen. In light of the abnormality seen on the Gastrografin small bowel follow and the chronicity of her abdominal symptoms I feel strongly that a repeat study with barium is indicated in this patient. I will leave her on clear liquids today and will obtain small bowel follow series with barium tomorrow.
[2017-05-07] MEDS: ESCITALOPRAM OXALATE 10 MG TABLET PO SCH (21:04)
[2017-05-07] MEDS: MORPHINE SULFATE 10 MG/ML INJ IV PRN (22:31)
[2017-05-07] MEDS: ONDANSETRON HCL INJ/PF 4 MG/2 ML SDV IV PRN (22:31)
[2017-05-08] MEDS: POTASSI CL 20 MEQ/D5-1/2NS 1L 1000 ML IV PRN ×3 (02:20→23:05)
[2017-05-08] MEDS: VALACYCLOVIR HCL 500 MG TABLET PO SCH ×2 (05:34→17:09)
[2017-05-08] MEDS: FAMOTIDINE INJ/PF 20 MG/2 ML SDV IV SCH ×2 (11:55→17:09)
--- NOTE | 2017-05-08 13:11 | RADIOLOGY REPORT (SQ) ---
EXAM DESCRIPTION: SMALL BOWEL SERIES COMPLETED DATE/TIME: 05/08/2017 9:58 am REASON FOR STUDY: Reevaluate small bowel dilation with barium R19.15 OTHER ABNORMAL BOWEL SOUNDS R7 3.03 PREDIABETES COMPARISON: Gastrografin small bowel follow-through 05/04/2017 Barium Small bowel follow-through 07/09/2009 Abdominal films 05/07/2017, 05/03/2017, CT abdomen pelvis 05/03/2017, FLUOROSCOPY TIME: 45 seconds 14 images saved to PACS. LIMITATIONS: None. PROCEDURE: Initial metrologist image of abdomen acquired, followed by administration of oral contrast. Se rial radiographic images acquired. Fluoroscopic images recorded of the terminal ileum and other lalo cated areas. All images stored on PACS. 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 No left upp er quadrant bowel loop wall thickening as was seen on Gastrografin study 05/04/2017. STOMACH: No significant reflux. Normal distention without abnormality. DUODENUM: Normal mucosal pattern with adequate distention. No displacement or obstruction. JEJUNUM: Normal mucosal pattern. No dilatation, segmentation, strictures or masses. ILEUM: Normal mucosal pattern. No dilatation, segmentation, strictures or masses. TERMINAL ILEUM AND ILEO-CECAL VALVE: Normal mucosal pattern without "cobble-stoning" or stricture. N ormal compression. PROXIMAL COLON: Incompletely imaged. No abnormality. OTHER: No other significant finding. IMPRESSION: The left upper quadrant dilated proximal small bowel loops and small bowel caliber trans ition point seen on prior CT exam and Gastrografin small bowel study in the left mid abdomen is no lo nger identified. No delay in transit of barium through the colon. Distal ileum is normal COMMENT: Quality ID [id number]: Final reports for procedures using fluoroscopy that document radiation exp osure indices, or exposure time and number of fluorographic images (if radiation exposure indices are not available) TECHNICAL DOCUMENTATION: JOB ID: [id number] [employer]- All Rights Reserved
--- NOTE | 2017-05-08 18:06 | PDOC PROGRESS REPORT ---
Subjective Progress Note for:: 05/08/17 Subjective:: still with LLQ pains. + Flatus and BM Reason For Visit: SMALL BOWEL OBSTRUCTION Physical Exam Vital Signs: Temp Pulse Resp BP Pulse Ox 97.9 F 81 12 117/69 99 05/08/17 15:35 05/08/17 15:35 05/08/17 15:35 05/08/17 15:35 05/08/17 15:35 Intake & Output 05/07/17 05/08/17 05/09/17 06:59 06:59 06:59 Intake Total 2030 686 Output Total 900 Balance 2029 -214 Weight 71.6 kg Exam: abdomen soft, mild tenderness LLQ Results Laboratory Results: 05/04/17 10:17 05/05/17 06:16 Impressions: Abdomen/Pelvis CT 05/03/17 00:01 IMPRESSION: Moderate grade small bowel obstruction with transition zone in the left paracentral pelvis. Surgical consultation warranted. KUB X-Ray 05/03/17 01:16 IMPRESSION: Enteric tube. 2010 [email or web address]- All Rights Reserved Abdomen X-Ray 05/07/17 00:00 IMPRESSION: NO RADIOGRAPHIC EVIDENCE FOR ACUTE ABDOMINAL DISEASE. Small Bowel X-Ray 05/08/17 08:00 IMPRESSION: The left upper quadrant dilated proximal small bowel loops and small bowel caliber transition point seen on prior CT exam and Gastrografin small bowel study in the left mid abdomen is no longer identified. No delay in transit of barium through the colon. Distal ileum is normal Assessment & Plan - Time Time Spent with patient: 15-24 minutes - Plan Summary Plan Summary: Plan to gradually increase po intake. Possible discharge tomorrow and follow up with [facility] Dr Soto.
[2017-05-08] MEDS: ESCITALOPRAM OXALATE 10 MG TABLET PO SCH (22:02)
[2017-05-09] MEDS: MORPHINE SULFATE 10 MG/ML INJ IV PRN (06:00)
[2017-05-09] MEDS: VALACYCLOVIR HCL 500 MG TABLET PO SCH (06:00)
[2017-05-09 08:43] VITALS: BP 102/65
== END 2017-05-09 09:00 | disposition home or self-care (01) | DRG 390 ==
LOC: ER 21:19 → EH 05-03 01:35 → 5 05-03 03:00 → OBSVTOIN 05-03 21:09
PROVIDERS: ADMIT Surgery; ATTEND Surgery
DX: K56.609 Unspecified intestinal obstruction, unspecified as to partial versus complete obstruction (principal); K58.9 Irritable bowel syndrome, unspecified; R73.03 Prediabetes; R47.02 Dysphasia; R26.0 Ataxic gait; G40.909 Epilepsy, unspecified, not intractable, without status epilepticus; F32.9 Major depressive disorder, single episode, unspecified; Z87.820 Personal history of traumatic brain injury
CPT/HCPCS: 36415; 74000; 74020; 74176; 74250; 80048; 80053; 81001; 81025; 83690; 85025; 87086; 96361; 96372; 96374; 96375; 99285; J2250; J2270; J2405; J2550; J3480; J7030; J7120; S0028

== ENCOUNTER 2017-06-23 15:57 | Emergency (ER) | payer MEDICARE, MEDICAID ==
[2017-06-23] MEDS ORDERED: ONDANSETRON HCL INJ/PF 4 MG/2 ML SDV IV ONE (18:48)
--- NOTE | 2017-06-23 18:48 | ER Document Report ---
ED Medical Screen (RME) - General Chief Complaint: Nausea/Vomiting/Diarrhea Stated Complaint: VOMITING,DIARRHEA Time Seen by Provider: 06/23/17 18:19 Mode of Arrival: Wheelchair Information source: Patient Notes: Patient is a 32 year old female with a history of IBS, PCOS, and a previous bowel obstruction presents to the emergency department accompanied by mother complaining of abdominal pain onset 2 days ago. Patients associated symptoms include vomiting onset today, diarrhea onset yesterday, a chronic cough and chronic chest pain. Mother is concerned for another possible bowel obstruction. I have greeted and performed a rapid initial assessment of this patient. A comprehensive ED assessment and evaluation of the patient, analysis of test results and completion of the medical decision making process will be conducted by additional ED providers. TRAVEL OUTSIDE OF THE [place] IN LAST 30 DAYS: No - Related Data Allergies/Adverse Reactions: aripiprazole [From Abilify] Allergy (Verified 06/23/17 16:06) Hives Past Medical History - General Information source: Patient - Social History Chew tobacco use (# tins/day): No Frequency of alcohol use: None Drug Abuse: None Pulmonary Medical History: Reports: Hx Bronchitis, Hx Pneumonia Neurological Medical History: Reports: Hx Seizures Endocrine Medical History: Reports: Hx 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 Musculoskeltal Medical History: Reports Hx Musculoskeletal Deformity, Reports Hx Musculoskeletal Trauma Psychiatric Medical History: Reports: Hx Depression Traumatic Medical History: Reports: Hx Traumatic Brain Injury Past Surgical History: Reports: Hx Neurologic Surgery - 2X ventriculectomy - Immunizations Hx Diphtheria, Pertussis, Tetanus Vaccination: Yes History of Influenza Vaccine for 02/2017 - 07/2017 Season: Refused Review of Systems - Review of Systems Constitutional: No symptoms reported EENT: No symptoms reported Cardiovascular: No symptoms reported Respiratory: No symptoms reported Gastrointestinal: See HPI, Abdominal pain Genitourinary: No symptoms reported Female Genitourinary: No symptoms reported Musculoskeletal: No symptoms reported Skin: No symptoms reported Hematologic/Lymphatic: No symptoms reported Neurological/Psychological: No symptoms reported -: Yes All other systems reviewed and negative Physical Exam - Vital signs Vitals: Temp Pulse Resp BP Pulse Ox 98.9 F 115 H 20 109/72 97 06/23/17 16:18 06/23/17 16:18 06/23/17 16:18 06/23/17 16:18 06/23/17 16:18 - Notes Notes: GENERAL: Alert, interacts well. No acute distress. HEAD: Normocephalic, atraumatic. EYES: Pupils equal, round, and reactive to light. Extraocular movements intact. ENT: Oral mucosa moist, tongue midline. NECK: Full range of motion. Supple. Trachea midline. LUNGS: Clear to auscultation bilaterally, no wheezes, rales, or rhonchi. No respiratory distress. HEART: Tachycardia. No murmurs, gallops, or rubs. ABDOMEN: Soft, Diffusely tender to palpation. Non-distended. Decreased bowel sounds EXTREMITIES: Moves all 4 extremities spontaneously. NEUROLOGICAL: Alert and oriented x3. Normal speech. PSYCH: Normal affect, normal mood. SKIN: Warm, dry, normal turgor. No rashes or lesions noted. Course - Vital Signs Vital signs: Temp Pulse Resp BP Pulse Ox 98.9 F 115 H 20 109/72 97 06/23/17 16:18 06/23/17 16:18 06/23/17 16:18 06/23/17 16:18 06/23/17 16:18 Scribe Documentation - Scribe Written by Heather:: Heather Rush, 06/23/2017 18:49 acting as scribe for :: New
[2017-06-23 19:30] LABS: ABSOLUTE EOSINOPHILS # (AUTO) 0.4 10^3/uL (0.0-0.6); ABSOLUTE MONOCYTES (AUTO) 1.1 10^3/uL (0.1-1.4); ABSOLUTE NEUT (AUTO) 14.5 10^3/uL (1.7-8.2); BASOPHILS % (AUTO) 0.1 % (0-2); EOSINOPHILS % (AUTO) 2.6 % (0-6); HEMATOCRIT 42.2 % (36.0-47.0); HEMOGLOBIN 14.4 g/dL (12.0-15.5); LYMPHOCYTES % (AUTO) 5.7 % (13-45); MEAN CORPUSCULAR HEMOGLOBIN 29.1 pg (27.0-33.4); MEAN CORPUSCULAR HGB CONC 34.2 g/dL (32.0-36.0); MEAN CORPUSCULAR VOLUME 85 fl (80-97); MONOCYTES % (AUTO) 6.4 % (3-13); PLATELET COUNT 307 10^3/uL (150-450); RED BLOOD COUNT 4.96 10^6/uL (3.72-5.28); RED CELL DISTRIBUTION WIDTH 12.8 % (11.5-14.0); SEGMENTED NEUTROPHILS % (AUTO) 85.2 % (42-78); TOTAL CELLS COUNTED % (AUTO) 100 %
[2017-06-23] MEDS ORDERED: METOCLOPRAMIDE HCL INJ/PF 10 MG/2 ML SDV IV ONE (19:44)
--- NOTE | 2017-06-23 19:44 | ER Document Report ---
ED General - General Chief Complaint: Nausea/Vomiting/Diarrhea Stated Complaint: VOMITING,DIARRHEA Time Seen by Provider: 06/23/17 18:19 Mode of Arrival: Wheelchair Notes: Social history denies any tobacco, drug use. Admits to rare alcohol use. she is not unemployed. Patient is a 32-year-old female presents emergency department with a chief complaint of vomiting today and diarrhea for the past 2 days. Patient does have a history of IBS with associated diarrhea. She does also admit to previous small bowel obstructions. She denies any fevers, abdominal tenderness. She does follow with Dr. Soto at [facility] for gastroenterology. She is not on anything for her IBS. She denies any history of diverticulitis but admits to previous colitis. She has had multiple colonoscopies in the past. History of polycystic ovarian syndrome. 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 Primary care is Dr. Recinos Last menstrual period 04/2017, she is not sexually active and is on control.Past surgical history significant for no previous abdominal procedures. TRAVEL OUTSIDE OF THE [place] 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 Renal/ Medical History: Denies: Hx Peritoneal Dialysis Musculoskeltal Medical History: Reports Hx Musculoskeletal Deformity, Reports Hx Musculoskeletal Trauma Psychiatric Medical History: Reports: Hx Depression Traumatic Medical History: Reports: Hx Traumatic Brain Injury Past Surgical History: Reports: Hx Neurologic Surgery - 2X ventriculectomy - Immunizations Hx Diphtheria, Pertussis, Tetanus Vaccination: Yes Review of Systems - Review of Systems Constitutional: No symptoms reported Cardiovascular: See HPI Respiratory: No symptoms reported Gastrointestinal: See HPI Genitourinary: No symptoms reported Musculoskeletal: No symptoms reported Neurological/Psychological: No symptoms reported -: Yes All other systems reviewed and negative Physical Exam - Vital signs Vitals: Temp Pulse Resp BP Pulse Ox 98.9 F 115 H 20 109/72 97 06/23/17 16:18 06/23/17 16:18 06/23/17 16:18 06/23/17 16:18 06/23/17 16:18 - Notes Notes: PHYSICAL EXAM GENERAL: Alert, interacts well. HEAD: Normocephalic, atraumatic. EYES: Pupils equal, round, and reactive to light. Extraocular movements intact. ENT: Oral mucosa moist, tongue midline. NECK: Full range of motion. Supple. Trachea midline. LUNGS: Clear to auscultation bilaterally, no wheezes, rales, or rhonchi. No respiratory distress. HEART: Regular rate and rhythm. No murmurs, gallops, or rubs. ABDOMEN: Soft, nondistended, nontender. No guarding, rebound, or rigidity.. Bowel sounds present in all 4 quadrants. EXTREMITIES: Moves all 4 extremities spontaneously. No edema, radial and dorsalis pedis pulses 2/4 bilaterally. No cyanosis. NEUROLOGICAL: Alert and oriented x4. Normal speech. PSYCH: Normal affect, normal mood. SKIN: Warm, dry, normal turgor. No rashes or lesions noted. Course - Re-evaluation Re-evalutation: 06/24/17 00:06 Patient is a 32-year-old female is hemodynamically stable, no acute distress and afebrile. CBC with mild elevation in white blood cells at 17,000 without associated source, patient is afebrile and without evidence of tachycardia or hypotension. Likely consistent with patient's recurrent history of vomiting today. Urinalysis clean without evidence of significant dehydration or UTI. CT of the abdomen and pelvis ordered in triage does not show any evidence of colitis, small bowel obstruction. Patient able to tolerate p.o. without any difficulty. Given stable vital signs and normal CT scan, presentation is likely consistent with gastritis and irritation of her chronic IBS. Discussed results with mom at the bedside who is agreeable for discharge and will follow up with her workers' compensation claims examiner. Given strict return precautions otherwise stable for discharge home - Vital Signs Vital signs: Temp Pulse Resp BP Pulse Ox 98.1 F 84 16 107/67 95 06/24/17 00:19 06/24/17 00:19 06/24/17 00:19 06/24/17 00:19 06/24/17 00:19 - Laboratory Result Diagrams: 06/23/17 19:16 06/23/17 19:16 Laboratory results interpreted by me: 06/23/17 06/23/17 06/23/17 19:16 19:16 20:05 WBC 17.0 H Seg Neutrophils % 85.2 H Lymphocytes % 5.7 L Absolute Neutrophils 14.5 H Glucose 127 H Urine Ketones 20 H Urine Ascorbic Acid 40 H - Diagnostic Test Radiology reviewed: Image reviewed, Reports reviewed Discharge - Discharge Clinical Impression: Nausea Diarrhea Qualifiers: Diarrhea type: unspecified type Qualified Code(s): R19.7 - Diarrhea, unspecified Condition: Stable Disposition: HOME, SELF-CARE Instructions: Clear Liquid Diet ([facility]), Diarrhea, Nonspecific ([facility]) Additional Instructions: There was no evidence of a bowel obstruction or inflammation noted on her CT scan. Blood work was also normal. Please follow up with your workers' compensation claims examiner this week. ABDOMINAL PAIN: There are many causes of abdominal pain. Pain can mean a serious problem requiring surgery (such as appendicitis). It can also be an innocent problem that goes away on its own (such as a viral infection). Often, time must pass to determine the cause of pain. The physician does not feel that hospitalization is necessary, at present. Things may change within the next 24 hours. Call the doctor or come back for re- examination if any problems occur, such as: (1) Pain that becomes more severe, steady, or becomes concentrated in one specific area. Also, pain that is more severe with movement or coughing. (2) Vomiting that persists or becomes more frequent. (3) Blood in the vomitus, urine, or bowel movements. Blood in the stool may have a tarry or black appearance. (4) Shaking chills or fever greater than 100 degrees F. (5) The abdomen becomes more distended or swollen. (6) Bowel movements cease. (7) Failure to improve as expected. NORMAL EXAM AND WORKUP: At this time, your examination and workup show no significant abnormality. No significant abnormal physical findings are noted. All laboratory, EKG, and imaging (x-ray, CT scans, ultrasound) studies that were ordered show no significant abnormality. Although your examination and all studies that were ordered showed no significant abnormal finding, there are no examinations and no studies that are 100% accurate. There is always the possibility that some abnormality could exist and not be detected with physical examination or within the limits and capabilities of laboratory and other studies. You should return or follow up as you were instructed on your visit today for further evaluation if your symptoms do not resolve. ANTINAUSEA MEDICATION: You have been given a medication to suppress nausea and vomiting. This type of medication can be given as a shot, pill, or suppository. It will usually last for many hours. Pills and shots usually last six to eight hours, suppositories last about 12 hours. For the typical illness, only one or two doses of the medication may be necessary. Mild lightheadedness may occur. This type of medicine can cause drowsiness. Do not drive or operate dangerous machinery while under its influence. Do not mix with alcohol. See your doctor at once if you have muscle spasms or tightness, or uncontrollable motions (particularly of the neck, mouth, or jaw). Persistent vomiting or severe lightheadedness should also be evaluated by the physician. FOLLOW-UP CARE: If you have been referred to a physician for follow-up care, call the physician s office for an appointment as you were instructed or within the next two days. If you experience worsening or a significant change in your symptoms, notify the physician immediately or return to the Emergency Department at any time for re-evaluation. Prescriptions: Ondansetron [Zofran Odt 4 mg Tablet] 1 - 2 tab PO Q4H PRN #15 tab.rapdis PRN Reason: For Nausea/Vomiting Referrals: NEGIN SOTO MD [NO LOCAL MD] - Follow up in 3-5 days LOCO RECINOS DO [Primary Care Provider] - Follow up in 1 week
[2017-06-23 19:46] LABS: ALANINE AMINOTRANSFERASE 27 U/L (9-52); ALBUMIN 4.2 g/dL (3.5-5.0); ALKALINE PHOSPHATASE 58 U/L (38-126); ANION GAP 9 (5-19); ASPARTATE AMINO TRANSFERASE 16 U/L (14-36); BILIRUBIN,DIRECT 0.2 mg/dL (0.0-0.4); BILIRUBIN,TOTAL 0.6 mg/dL (0.2-1.3); BLOOD UREA NITROGEN 14 mg/dL (7-20); CALCIUM 9.6 mg/dL (8.4-10.2); CARBON DIOXIDE 23 mmol/L (22-30); CHLORIDE 105 mmol/L (98-107); GLUCOSE 127 mg/dL (75-110); LIPASE 51.5 U/L (23-300); POTASSIUM 4.1 mmol/L (3.6-5.0); SODIUM 137.4 mmol/L (137-145); TOTAL PROTEIN 6.6 g/dL (6.3-8.2)
--- NOTE | 2017-06-23 19:53 | RADIOLOGY REPORT (SQ) ---
EXAM DESCRIPTION: CHEST SINGLE VIEW COMPLETED DATE/TIME: 06/23/2017 7:35 pm REASON FOR STUDY: CHEST PAIN AND VOMITING COMPARISON: 2016. NUMBER OF VIEWS: One view. TECHNIQUE: Single frontal radiographic view of the chest acquired. LIMITATIONS: None. FINDINGS: LUNGS AND PLEURA: No opacities, masses or pneumothorax. No pleural effusion. MEDIASTINUM AND HILAR STRUCTURES: No masses. Contour normal. HEART AND VASCULAR STRUCTURES: Heart normal in size. Normal vasculature. BONES: No acute findings. HARDWARE: None in the chest. OTHER: No other significant finding. IMPRESSION: NO SIGNIFICANT RADIOGRAPHIC FINDING IN THE CHEST. TECHNICAL DOCUMENTATION: JOB ID: [id number] [employer]- All Rights Reserved
[2017-06-23 21:01] LABS: APPEARANCE,URINE SLIGHTLY-CLOUDY; BILIRUBIN,URINE NEGATIVE (NEGATIVE); COLOR,URINE YELLOW; GLUCOSE, URINE NEGATIVE (NEGATIVE); KETONES,URINE 20 mg/dL (NEGATIVE); LEUKOCYTE ESTERASE,URINE NEGATIVE (NEGATIVE); NITRITE,URINE NEGATIVE (NEGATIVE); PROTEIN,URINE NEGATIVE (NEGATIVE); URINE SPECIFIC GRAVITY 1.032; UROBILINOGEN,URINE NEGATIVE mg/dL (<2.0)
--- NOTE | 2017-06-23 22:06 | RADIOLOGY REPORT (SQ) ---
EXAM DESCRIPTION: CT ABD/PELVIS WITH IV ORAL COMPLETED DATE/TIME: 06/23/2017 9:33 pm REASON FOR STUDY: abd pain, N/V/D, hx of SBO COMPARISON: None. TECHNIQUE: CT scan of the abdomen and pelvis performed with intravenous and oral contrast using [place] mj scanning technique with dynamic intravenous contrast injection. Images reviewed with lung, soft t issue, and bone windows. Reconstructed coronal and sagittal MPR images reviewed. Delayed images for e valuation of the urinary system also acquired. All images stored on PACS. All CT scanners at this facility use dose modulation, iterative reconstruction, and/or weight based d osing when appropriate to reduce radiation dose to as low as reasonably achievable (ALARA). [facility]: Dose Right [facility]: CareDose [facility]: Dose Right [facility]: Teradose 4D [facility]: [employer] CONTRAST TYPE AND DOSE: contrast/concentration: Isovue 370.00 mg/ml; Total Contrast Delivered: 89.0 ml; Total Saline Delivered: 39.1 ml RENAL FUNCTION: None required. The patient is less than 50 years old. RADIATION DOSE: CT Rad equipment meets quality standard of care and radiation dose reduction techniq ues were employed. CTDIvol: 7.5 mGy. DLP: 752 mGy-cm.. LIMITATIONS: None. FINDINGS: LOWER CHEST: No significant findings. No nodules or infiltrates. LIVER: Normal size. No masses. No dilated ducts. SPLEEN: Normal size. No focal lesions. PANCREAS: No masses. No significant calcifications. No adjacent inflammation or peripancreatic fluid collections. Pancreatic duct not dilated. GALLBLADDER: No identified stones by CT criteria. No inflammatory changes to suggest cholecystitis. ADRENAL GLANDS: No significant masses or asymmetry. RIGHT KIDNEY AND URETER: No solid masses. No significant calcification. No hydronephrosis or hydroure ter. LEFT KIDNEY AND URETER: No solid masses. No significant calcification. No hydronephrosis or hydrouret er. AORTA AND VESSELS: No aneurysm. No dissection. Renal arteries, SMA, celiac without stenosis. RETROPERITONEUM: No retroperitoneal adenopathy, hemorrhage or masses. BOWEL AND PERITONEAL CAVITY: No evidence of bowel obstruction or ascites or free air. Mild mesenteri c scattered shotty lymph nodes. No bowel related inflammatory process otherwise suggested. APPENDIX: Diminutive. No regional inflammation or thickening along the base of the cecum. PELVIS: No significant masses. Normal bladder. No free fluid. ABDOMINAL WALL: No masses. No hernias. BONES: No significant or acute findings. OTHER: No other significant finding. IMPRESSION: 1. Mild mesenteric adenitis, potentially related to recent GI illness. No evidence of a cute abdominopelvic abnormality otherwise. TECHNICAL DOCUMENTATION: JOB ID: [id number] Quality ID # [id number]: Final reports with documentation of one or more dose reduction techniques (e.g., Au tomated exposure control, adjustment of the mA and/or kV according to patient size, use of iterative reconstruction technique) 2010 [employer]- All Rights Reserved
[2017-06-23] MEDS ORDERED: DIPHENHYDRAMINE HCL 50 MG/ML VIAL IV ONE (22:44)
[2017-06-24 00:23] VITALS: BP 107/67
== END 2017-06-24 00:22 | disposition home or self-care (01) ==
LOC: ER 15:57
DX: R11.0 Nausea (principal); R19.7 Diarrhea, unspecified; R73.03 Prediabetes; Z86.11 Personal history of tuberculosis
CPT/HCPCS: 99284; 96374; 96375; 36415; 87086; 83605; 83690; 84703; 85025; 87088; 80053; 81001; 71045; 74177; J1200; J2765; J2405

== ENCOUNTER 2017-06-27 20:09 | Emergency (ER) | payer MEDICARE, MEDICAID ==
[2017-06-27] MEDS ORDERED: NORMAL SALINE 1000 ML 1,000 ML IV ONE (20:34)
--- NOTE | 2017-06-27 20:41 | ER Document Report ---
ED Medical Screen (RME) - General Chief Complaint: Nausea/Vomiting/Diarrhea Stated Complaint: VOMITING,ABDOMINAL PAIN Time Seen by Provider: 06/27/17 20:33 Information source: Patient, Parent TRAVEL OUTSIDE OF THE [place] IN LAST 30 DAYS: No - HPI Notes: 06/27/17 20:41 She presents here for diffuse abdominal pain, nausea vomiting and diarrhea. She was seen here June 23, 2017 for the same thing CAT scan showed mesenteric adenitis. She states she is not getting any better. She is unable to keep down fluids. She is taking Phenergan without relief. No fevers. 06/27/17 20:42 I have greeted and performed a rapid initial assessment of this patient. A comprehensive ED assessment and evaluation of the patient, analysis of test results and completion of the medical decision making process will be conducted by additional ED providers. PHYSICAL EXAMINATION: Abdominal exam shows hypoactive bowel sounds. No rebound rigidity or guarding. No distention noted. - Related Data Allergies/Adverse Reactions: aripiprazole [From AbilifEvince] Allergy (Verified 06/23/17 16:06) Hives latex Allergy (Verified 06/27/17 20:17) Past Medical History Pulmonary Medical History: Reports: Hx Bronchitis, Hx Pneumonia Neurological Medical History: Reports: Hx Seizures Endocrine Medical History: Reports: Hx 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 Renal/ Medical History: Denies: Hx Peritoneal Dialysis Musculoskeltal Medical History: Reports Hx Musculoskeletal Deformity, Reports Hx Musculoskeletal Trauma Psychiatric Medical History: Reports: Hx Depression Traumatic Medical History: Reports: Hx Traumatic Brain Injury Past Surgical History: Reports: Hx Neurologic Surgery - 2X ventriculectomy - Immunizations Hx Diphtheria, Pertussis, Tetanus Vaccination: Yes History of Influenza Vaccine for 02/2017 - 07/2017 Season: Refused Physical Exam - Vital signs Vitals: Temp Pulse Resp BP Pulse Ox 98.4 F 96 18 113/84 97 06/27/17 20:19 06/27/17 20:19 06/27/17 20:19 06/27/17 20:19 06/27/17 20:19 Course - Vital Signs Vital signs: Temp Pulse Resp BP Pulse Ox 98.4 F 96 18 113/84 97 06/27/17 20:19 06/27/17 20:19 06/27/17 20:19 06/27/17 20:19 06/27/17 20:19
[2017-06-27 21:24] LABS: ABSOLUTE EOSINOPHILS # (AUTO) 2.6 10^3/uL (0.0-0.6); ABSOLUTE LYMPHOCYTES (AUTO) 3.2 10^3/uL (0.5-4.7); ABSOLUTE MONOCYTES (AUTO) 0.9 10^3/uL (0.1-1.4); ABSOLUTE NEUT (AUTO) 7.3 10^3/uL (1.7-8.2); BASOPHILS % (AUTO) 0.2 % (0-2); EOSINOPHILS % (AUTO) 18.7 % (0-6); HEMATOCRIT 43.3 % (36.0-47.0); HEMOGLOBIN 14.5 g/dL (12.0-15.5); MEAN CORPUSCULAR HEMOGLOBIN 28.7 pg (27.0-33.4); MEAN CORPUSCULAR HGB CONC 33.4 g/dL (32.0-36.0); MEAN CORPUSCULAR VOLUME 86 fl (80-97); MONOCYTES % (AUTO) 6.1 % (3-13); PLATELET COUNT 373 10^3/uL (150-450); RED BLOOD COUNT 5.04 10^6/uL (3.72-5.28); RED CELL DISTRIBUTION WIDTH 12.9 % (11.5-14.0); TOTAL CELLS COUNTED % (AUTO) 100 %
[2017-06-27 21:37] LABS: ALANINE AMINOTRANSFERASE 58 U/L (9-52); ALBUMIN 3.8 g/dL (3.5-5.0); ALKALINE PHOSPHATASE 51 U/L (38-126); ANION GAP 9 (5-19); ASPARTATE AMINO TRANSFERASE 18 U/L (14-36); BILIRUBIN,DIRECT 0.4 mg/dL (0.0-0.4); BILIRUBIN,TOTAL 0.4 mg/dL (0.2-1.3); BLOOD UREA NITROGEN 6 mg/dL (7-20); CALCIUM 9.7 mg/dL (8.4-10.2); CARBON DIOXIDE 26 mmol/L (22-30); CHLORIDE 106 mmol/L (98-107); GLUCOSE 110 mg/dL (75-110); POTASSIUM 4.6 mmol/L (3.6-5.0); SODIUM 140.6 mmol/L (137-145); TOTAL PROTEIN 6.5 g/dL (6.3-8.2)
[2017-06-27] MEDS ORDERED: ONDANSETRON HCL INJ/PF 4 MG/2 ML SDV IV ONE (21:42)
--- NOTE | 2017-06-27 21:46 | ER Document Report ---
ED General - General Chief Complaint: Nausea/Vomiting/Diarrhea Stated Complaint: VOMITING,ABDOMINAL PAIN Time Seen by Provider: 06/27/17 20:33 Notes: Patient is a 32 year old female who returns to the ED complaining of return of nausea, vomiting and diarrhea. Her mother at the bedside states that upon discharge from here, she was feeling much better and they followed up with her account processor who encouraged her to take Imodium. Mom states that on Thursday she was fine, had return of symptoms on and she started taking the Imodium without much improvement. She then went to urgent care and was prescribed Lomotil today. She admits to one episode of emesis today that was non-hematemesis, nonbilious. Describes her bowel movements as loose, watery without any evidence of dark tarry stools, bright red blood per rectum, mucus. She admits to cramps in left lower quadrant. Denies any fevers or chills She does also admit to previous small bowel obstructions. She does follow with Dr. Soto at [facility] for gastroenterology. She is not on anything for her IBS. She denies any history of diverticulitis but admits to previous colitis. She has had multiple colonoscopies in the past. History of polycystic ovarian syndrome. 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 Primary care is Dr. Recinos TRAVEL OUTSIDE OF THE [place] IN LAST 30 DAYS: No - Related Data Allergies/Adverse Reactions: aripiprazole [From Abilify] Allergy (Verified 06/23/17 16:06) Hives latex Allergy (Verified 06/27/17 20:17) Past Medical History - General Information source: Patient, Parent - Social History Smoking Status: Unknown if Ever Smoked Family History: Reviewed & Not Pertinent Patient has suicidal ideation: No Patient has homicidal ideation: No Pulmonary Medical History: Reports: Hx Bronchitis, Hx Pneumonia Neurological Medical History: Reports: Hx Seizures Endocrine Medical History: Reports: Hx 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 Renal/ Medical History: Denies: Hx Peritoneal Dialysis Musculoskeltal Medical History: Reports Hx Musculoskeletal Deformity, Reports Hx Musculoskeletal Trauma Psychiatric Medical History: Reports: Hx Depression Traumatic Medical History: Reports: Hx Traumatic Brain Injury Past Surgical History: Reports: Hx Neurologic Surgery - 2X ventriculectomy - Immunizations Hx Diphtheria, Pertussis, Tetanus Vaccination: Yes Review of Systems - Review of Systems Constitutional: No symptoms reported Cardiovascular: No symptoms reported Respiratory: No symptoms reported Gastrointestinal: See HPI Musculoskeletal: No symptoms reported -: Yes All other systems reviewed and negative Physical Exam - Vital signs Vitals: Temp Pulse Resp BP Pulse Ox 98.4 F 96 18 113/84 97 06/27/17 20:19 06/27/17 20:19 06/27/17 20:19 06/27/17 20:19 06/27/17 20:19 - Notes Notes: PHYSICAL EXAM GENERAL: Alert, interacts well. LUNGS: Clear to auscultation bilaterally, no wheezes, rales, or rhonchi. No respiratory distress. HEART: Regular rate and rhythm. No murmurs, gallops, or rubs. ABDOMEN: Soft, nondistended, nontender. No guarding, rebound, or rigidity.. Bowel sounds present in all 4 quadrants. EXTREMITIES: Moves all 4 extremities spontaneously. No edema, radial and dorsalis pedis pulses 2/4 bilaterally. No cyanosis. NEUROLOGICAL: Alert and oriented x4. Normal speech. PSYCH: Normal affect, normal mood. SKIN: Warm, dry, normal turgor. No rashes or lesions noted. Course - Re-evaluation Re-evalutation: 06/27/17 21:40 Patient is a 32-year-old female who is hemodynamically stable, no acute distress and afebrile who returns to the emergency department with chronic intermittent left lower quadrant cramping with diarrhea and vomiting that returned yesterday. They were evaluated on 06/23 with evidence of mesenteric lymphadenitis. She denies any fever. She denies any recent out of as well as country travel stream water ingestion, raw meat ingestion. She has not had an episode of emesis or diarrhea since her stay in the emergency room. 06/27/17 22:30 Patient has not had any episodes of emesis or loose bowel movements since my evaluation. Given her history of PCOS and left lower quadrant pain will send for an ultrasound of this area to rule out any ovarian cyst per request her mother at the bedside 06/28/17 12:00 Patient still able to tolerate p.o. without any evidence of loose bowel movements. Repeat abdominal exams did not reveal any concerns for acute abdomen. Pain improved after Toradol. Her presentation is consistent with her history of IBS. patient has had a period of relief after medications and diet adjustments recommended to her over the course of the week and improvement after home dose of Phenergan and Lomotil prior to arrival, and low clinical suspicion for any concerns of acute colitis, diverticulitis, intussusception given benign physical exam and previous CT findings of mesenteric adenitis without focal colitis. Discussed with mother and patient in depth after review of the chart that the symptoms are consistent with her chronic history of IBS. Given strict return precautions otherwise discussed with him to follow-up with her account processor as scheduled. - Vital Signs Vital signs: Temp Pulse Resp BP Pulse Ox 98.4 F 96 18 113/84 97 06/27/17 20:19 06/27/17 20:19 06/27/17 20:19 06/27/17 20:19 06/27/17 20:19 - Laboratory Result Diagrams: 06/27/17 20:57 06/27/17 20:57 Laboratory results interpreted by me: 06/27/17 06/27/17 06/27/17 20:57 20:57 21:36 WBC 14.0 H Eosinophils % 18.7 H Absolute Eosinophils 2.6 H BUN 6 L ALT 58 H Urine Protein 30 H Urine Blood LARGE H Ur Leukocyte Esterase SMALL H Urine Ascorbic Acid 20 H - Diagnostic Test Radiology reviewed: Reports reviewed Discharge - Discharge Clinical Impression: Diarrhea Qualifiers: Diarrhea type: unspecified type Qualified Code(s): R19.7 - Diarrhea, unspecified Condition: Good Disposition: HOME, SELF-CARE Instructions: Prescribed Antidiarrhea Medications ([facility]), Diarrhea, Nonspecific ([facility]) Prescriptions: Diphenoxylate HCl/Atropine [Lomotil Tablet] 1 - 2 each PO Q4HP PRN #15 tablet PRN Reason: Dicyclomine HCl [Bentyl 10 mg Capsule] 1 cap PO TID #30 cap Referrals: LOCO RECINOS DO [Primary Care Provider] - Follow up as needed NEGIN SOTO MD [NO LOCAL MD] - 06/29/17
[2017-06-27] MEDS ORDERED: KETOROLAC TROMETHAMINE INJ/PF 30 MG/1 ML SDV IV ONE (22:07)
[2017-06-27 22:44] LABS: APPEARANCE,URINE TURBID; BILIRUBIN,URINE NEGATIVE (NEGATIVE); COLOR,URINE YELLOW; GLUCOSE, URINE NEGATIVE (NEGATIVE); KETONES,URINE NEGATIVE (NEGATIVE); LEUKOCYTE ESTERASE,URINE SMALL (NEGATIVE); NITRITE,URINE NEGATIVE (NEGATIVE); PROTEIN,URINE 30 mg/dL (NEGATIVE); URINE SPECIFIC GRAVITY 1.025; UROBILINOGEN,URINE NEGATIVE mg/dL (<2.0)
[2017-06-27] MEDS ORDERED: DIPHENHYDRAMINE HCL 50 MG/ML VIAL ONE (22:52)
[2017-06-27] MEDS ORDERED: DIPHENHYDRAMINE HCL 50 MG/ML VIAL IV ONE (22:52)
--- NOTE | 2017-06-28 00:14 | RADIOLOGY REPORT (SQ) ---
EXAM DESCRIPTION: U/S NON OB PEL TV W/DOPPLER COMPLETED DATE/TIME: 06/27/2017 11:58 pm REASON FOR STUDY: LLQ pain, h/o PCOS COMPARISON: CT abdomen and pelvis 06/23/2017 TECHNIQUE: Dynamic and static grayscale images acquired of the pelvis via transvaginal approach and recorded on PACS. Additional selected color Doppler and spectral images recorded. LIMITATIONS: Overlying bowel gas. FINDINGS: UTERUS: Measures 7.6 x 3.3 x 4.4 cm. No focal myometrial mass was seen. ENDOMETRIAL STRIPE: Measures 1.5 mm in double wall thickness. CERVIX: Measures 2.7 cm in length. RIGHT OVARY: Not visualized due to overlying bowel gas. LEFT OVARY: Measures 1.8 x 1.9 x 2.8 cm. Flow by Doppler was shown to the left ovary. FREE FLUID: Small amount of free fluid noted with in the posterior cul-de-sac. IMPRESSION: Nonvisualized right ovary. Small amount of free pelvic fluid. Otherwise, no acute find ings. TECHNICAL DOCUMENTATION: JOB ID: [id number] [employer]- All Rights Reserved
[2017-06-28] MEDS ORDERED: DICYCLOMINE HCL 10 MG CAPSULE PO ONE (00:57)
[2017-06-28 02:27] VITALS: BP 105/78
== END 2017-06-28 01:40 | disposition home or self-care (01) ==
LOC: ER 20:09
DX: R19.7 Diarrhea, unspecified (principal); R11.2 Nausea with vomiting, unspecified; R10.32 Left lower quadrant pain
CPT/HCPCS: 99284; 96361; 96374; 96375; 36415; 87086; 85025; 81025; 87088; 80053; 81001; 76830; 93976; A9270; J1200; J1885; J2405; J7030; J3490